=== PATIENT | male | born 1945 | race Caucasian/White ===

== ENCOUNTER 2017-09-25 08:48 | Outpatient (RCR) | payer MEDICARE, OTHER ==
[2017-09-18 09:20] VITALS: BP 138/89
[2017-09-18 09:39] LABS: PLATELET COUNT, AUTOMATED 205 K/uL (150-450)
[~2017-09-25] VITALS: Ht 180.3 cm; Wt 94.8 kg
[~2017-09-25 08:48] MED LIST: AMOX-559 PO; ASCO100T15 PO; ATR80PT PO; CHOL400C10 PO; DOXE10CA25 PO; MULT1CAP59 PO; OMEP-125 PO; PRED-1 PO; TAMS0.4C70 PO; VITA-198 PO
[2017-09-25 09:04] VITALS: BP 145/78
--- NOTE | 2017-09-26 18:20 | ONCOLOGY FOLLOW UP NOTE ---
EVENT DATE: August 25, 2017 CHIEF COMPLAINT/REASON FOR VISIT Mr. Akins is a pleasant 72-year-old gentleman with CLL HARMON stage 0, here for followup. HISTORY OF PRESENT ILLNESS Bryant returns. He has a diagnosis of CLL with no high risk features. 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 In CLL, trisomy 12 is an indeterminate prognostic factor, but deletion 13q is a very favorable prognostic factor. It is not surprising that his labs are unchanged. 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 Fortunately no issues with infection. He does not believe he has been sick this winter. He has lost approximately 50 pounds intentionally with diet and exercise changes over the lateral year, which is outstanding. No other new concerns today. PAST MEDICAL HISTORY 1. Hyperlipidemia. 2. Hypertension. 3. Type 2 diabetes. 4. CLL. FAMILY HISTORY Remarkable for a seizure disorder, lung cancer in a brother, father with coronary artery disease, a paternal grandmother with stomach cancer, and a paternal grandmother with a brain tumor. 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 He has presented with his in the past. Never smoker. REVIEW OF SYSTEMS: CONSTITUTIONAL: No fevers, chills. He now has a 50 pound intentional weight loss, which is excellent. HEENT: No headache or vision changes. CARDIOVASCULAR: No chest pain, dyspnea on exertion or edema. RESPIRATORY: No shortness of breath, wheeze, cough. GASTROINTESTINAL: No nausea, vomiting. MUSCULOSKELETAL: The patient does note some inflammation along the right border of his sternum, consistent with some mild costochondritis. He thinks this may have been there before, but is more noticeable now that he has lost weight. ENDOCRINE: No heat or cold intolerance. PSYCHIATRIC: No anxiety or depression. LYMPHATIC: No concerning lymph nodes. The remainder of the 14-point review of systems is otherwise negative. PHYSICAL EXAMINATION VITAL SIGNS: Blood pressure 145/78, pulse 57, respiratory rate 16, temperature 97.1 Fahrenheit, oxygen saturation 96% on room air. Weight 94.8 kg, pain 0/10, fatigue 0/10. GENERAL: In stable condition, resting comfortably in the chair. HEENT: Normocephalic, atraumatic. LYMPHATIC: No appreciable cervical, supraclavicular or axillary adenopathy. ABDOMEN: Soft. No organomegaly or masses appreciated. EXTREMITIES: No clubbing, cyanosis or edema. The remainder of the physical exam is unremarkable. IMPRESSION AND PLAN Bryant is a very pleasant 72-year-old gentleman with the followin. Chronic lymphocytic leukemia with favorable genetics with a 13q deletion. No indication for treatment at this time. No anemia, thrombocytopenia or other concerns. His IgG remains above 400. No need for IVIG at this point. 2. Benign renal lesions. He had an MRI in 2017, and no need to follow these any longer. I answered all of his questions today. Billing: Return visit level 3. Total time 20 minutes, counseling time 15. MTDD
== END 2017-10-11 09:01 | disposition home or self-care (01) ==
LOC: ONC 08:48
PROVIDERS: ATTEND Internal Medicine
DX: C91.00 Acute lymphoblastic leukemia not having achieved remission (principal); N28.89 Other specified disorders of kidney and ureter; E11.9 Type 2 diabetes mellitus without complications
CPT/HCPCS: 36415; 82784; 85025; G0463; 82040; 82247; 82310; 82374; 82435; 82565; 82947; 84075; 84132; 84155; 84295; 84450; 84460; 84520; 99212

== ENCOUNTER 2017-12-12 09:14 | Outpatient (RCR) | payer MEDICARE, OTHER ==
--- NOTE | 2017-12-13 11:10 | RADIOLOGY IMAGING REPORT ---
FACILITY: [facility] PATIENT NAME: Bryant Akins : 1945 MR: [id number] V: [id number] EXAM DATE: ORDERING PHYSICIAN: UMBERTO COLORADO TECHNOLOGIST: Location: [facility] Patient: Bryant Akins : 1945 Visit/Account:[id number] Date of Sevice: 12/13/2017 ABDOMEN PELVIS ESWL CYSTO W/O HISTORY: History of kidney stones TECHNIQUE: Axial images acquired through the abdomen/pelvis. Coronal and sagittal reformatting also performed. No IV contrast administered. Dose Lowering Technique One of the following dose optimization techniques was utilized in the performance of this exam: Autom ated exposure control; adjustment of the mA and/or kV according to the patient's size; or use of an i terative reconstruction technique. Specific details can be referenced in the facility's radiology C T exam operational policy. COMPARISON: CT chest abdomen and pelvis January 05, 2017 FINDINGS: Visualized lung bases: Negative. Hepatobiliary: The liver is incompletely imaged although the visualized portion appears unremarkable Spleen: Spleen is incompletely imaged although the visualized portion appears unremarkable Adrenals: Negative. Pancreas: Negative. Kidneys ureters and bladder: 2.9 cm upper pole right renal cyst appears unchanged. 8 mm cyst upper p ole the left kidney slightly increased now measuring 1 cm.. The 1.8 cm hyperattenuating mass anterol ateral left mid kidney appears unchanged in size. This was shown by previous MR to represent a prote inaceous or hemorrhagic cyst. Cortical scarring lower pole of the left kidney again seen within the adjacent 6 mm nonobstructing calcification. Is an additional tiny punctate calcification in the infe rior most aspect lower pole the left kidney. There is no evidence of hydronephrosis or hydroureter. There is moderate bladder wall thickening. There are now bladder diverticula present. Genitalia: Negative. GI: The colon appears very redundant. There is a moderate amount of fecal material throughout colon which can be seen with constipation. Hyperdense material is seen in the stomach which may be relat ed to medication Vessels/spaces/nodes: Mild to moderate vascular calcifications again noted.. There is been developm ent of mild retroperitoneal adenopathy. A collections representative left periaortic lymph node measures 1.2 x 0 .9 x 1.4 cm. Bones/soft tissues: There are extensive spondylotic changes of the lumbar spine and mild generative changes hip joints Additional findings: None pertinent. IMPRESSION: Bilateral renal cysts The previously noted 1.8 cm hyperattenuating mass along the anterolateral aspect left kidney appears unchanged in size and was shown by previous MR to represent a proteinaceous or hemorrhagic cyst. Cortical scarring of the lower pole the left kidney with adjacent calcification appears stable other than a slight increase in size of the calcination now measuring 60 m as opposed to 4.6 mm previously There is moderate bladder wall thickening with bladder diverticula now evident. Very redundant colon with a moderate amount of fecal material throughout colon which can be seen with constipation Interval development of mild retroperitoneal adenopathy. This could be reactive although short-term interval follow-up recommended Report Dictated By: Valerie Parker MD at 12/13/2017 10:10 AM Report E-Signed By: Valerie Parker MD at 12/13/2017 11:03 AM ZAHIRAN:AMICIVN
== END 2017-12-13 18:00 | disposition home or self-care (01) ==
LOC: CT 09:14
PROVIDERS: ATTEND Urology
DX: Z12.5 Encounter for screening for malignant neoplasm of prostate (principal); N28.1 Cyst of kidney, acquired; N32.3 Diverticulum of bladder
CPT/HCPCS: 36415; 74176; G0103; 84153

== ENCOUNTER 2017-12-19 05:28 | Emergency (ER) | payer MEDICARE, OTHER ==
[2017-12-19] MEDS ORDERED: NS(*) 0.9% 1000 ML BAG 1,000 ML IV ONE (05:45)
[2017-12-19] MEDS ORDERED: ONDANSETRON 4 MG/2 ML VIAL IVP ONE (05:45)
--- NOTE | 2017-12-19 05:45 | ER Report ---
History and Physical Time Seen By MD: 05:33 (REJI DEE DO) HPI/ROS CHIEF COMPLAINT: Constipation HISTORY OF PRESENT ILLNESS: 72-year-old male presents ambulatory to the ER complaining of no bowel movement for 4 days. He's been loading upon fiber and drinking a ton of water. He took a laxative last night and milk of magnesia without effect elation of his bowels. He attempted to digitally disimpact himself. He causes himself to have some rectal bleeding. Patient denies history of previous abdominal surgery. Patient states he had screening colonoscopy approximately 15 years ago. There were no lesions noted. At that time. REVIEW OF SYSTEMS: Respiratory: No cough, no dyspnea. Cardiovascular: No chest pain, no palpitations. Gastrointestinal: As above Musculoskeletal: No back pain. (REJI DEE DO) Allergies: Coded Allergies: No Known Drug Allergies (Unverified , 12/19/17) Home Meds Active Scripts Docusate Sodium (COLACE) 100 Mg Capsule, 100 MG PO QDAY, #30 CAPSULE 0 Refills Prov:TUNG SPANGLER MD 12/19/17 Reported Medications Cholecalciferol (Vitamin D3) (VITAMIN D) 400 Unit Capsule, 400 UNIT PO DAILY, CAPSULE 09/18/17 Ascorbic Acid (VITAMIN C) 100 Mg Tablet, 2000 MG PO DAILY 09/18/17 Multivitamin (MULTIVITAMINS) 1 Each Capsule, 1 EACH PO DAILY, CAPSULE 09/18/17 Atorvastatin (LIPITOR) 80 Mg Tab, 0.5 TAB PO QPM, TAB 12/24/16 Tamsulosin Hcl (TAMSULOSIN HCL) 0.4 Mg Cap.er.24h, 0.4 MG PO BID, CAP 12/24/16 Omeprazole (OMEPRAZOLE) 20 Mg Capsule.dr, 2 CAP PO QDAY, CAP 12/24/16 Discontinued Reported Medications Vitamin E Acetate (VITAMIN E) 1,000 Unit Capsule, 1000 UNIT PO DAILY, CAPSULE 09/18/17 Past Medical/Surgical History PAST MEDICAL HISTORY 1. Hyperlipidemia. 2. Hypertension. 3. Type 2 diabetes. 4. CLL. (REJI DEE DO) Reviewed Nurses Notes: Yes Old Medical Records Reviewed: Yes (REJI DEE DO) Constitutional Vital Sign - Last 24 Hours 12/19/17 05:34 Temp 98.4 Pulse 69 Resp 16 B/P (MAP) 127/64 Pulse Ox 94 O2 Delivery Room Air (TUNG SPANGLER MD) Physical Exam General Appearance: The patient is alert, has no immediate need for airway protection and no current signs of toxicity. Vital signs stable, skin warm, dry , pink Eyes: Pupils equal and round no injection. Respiratory: Chest is non tender, lungs are clear to auscultation. Cardiac: regular rate and rhythm Gastrointestinal: Abdomen is soft, mild distention,, no masses, bowel sounds normal. Musculoskeletal: Neck: Neck is supple and non tender. Extremities have full range of motion and are non tender. Skin: No rashes or lesions. DIFFERENTIAL DIAGNOSIS: After history and physical exam differential diagnosis was considered for abdominal pain including but not limited to appendicitis, cholecystitis, gastritis, bowel obstruction, constipation and urinary tract infection. (REJI DEE DO) Medical Decision Making Data Points Result Diagram: 12/19/17 0556 12/19/17 0556 Laboratory Hematology Test 12/19/17 05:56 12/19/17 07:55 Red Blood Count 4.14 M/uL (4.00-5.60) Mean Corpuscular Volume 94.2 fL (80.0-96.0) Mean Corpuscular Hemoglobin 33.5 pg (26.0-33.0) Mean Corpuscular Hemoglobin Concent 35.6 g/dL (32.0-36.0) Red Cell Distribution Width 14.1 % (11.5-14.5) Mean Platelet Volume 9.1 fL (7.2-11.1) Neutrophils (%) (Auto) 36.7 % (39.4-72.5) Lymphocytes (%) (Auto) 54.2 % (17.6-49.6) Monocytes (%) (Auto) 6.1 % (4.1-12.4) Eosinophils (%) (Auto) 2.3 % (0.4-6.7) Basophils (%) (Auto) 0.7 % (0.3-1.4) Nucleated RBC Relative Count (auto) 0.1 /100WBC Neutrophils # (Auto) 4.1 K/uL (2.0-7.4) Lymphocytes # (Auto) 6.1 K/uL (1.3-3.6) Monocytes # (Auto) 0.7 K/uL (0.3-1.0) Eosinophils # (Auto) 0.3 K/uL (0.0-0.5) Basophils # (Auto) 0.1 K/uL (0.0-0.1) Nucleated RBC Absolute Count (auto) 0.01 K/uL Prothrombin Time 13.2 seconds (12.0-14.4) Prothromb Time International Ratio 1.00 Activated Partial Thromboplast Time 28 seconds (23-35) Sodium Level 137 mmol/L (137-145) Potassium Level 3.8 mmol/L (3.5-5.0) Chloride Level 100 mmol/L (98-107) Carbon Dioxide Level 25 mmol/L (22-30) Blood Urea Nitrogen 13 mg/dl (9-21) Creatinine 0.70 mg/dl (0.66-1.25) Glomerular Filtration Rate Calc > 60.0 Random Glucose 105 mg/dl (75-110) Calcium Level 8.6 mg/dl (8.4-10.2) Total Bilirubin 0.4 mg/dl (0.2-1.3) Aspartate Amino Transf (AST/SGOT) 30 U/L (0-35) Alanine Aminotransferase (ALT/SGPT) 38 U/L (0-56) Alkaline Phosphatase 49 U/L (0-126) Total Protein 6.1 gm/dl (6.3-8.2) Albumin 3.7 g/dl (3.5-5.0) Amylase Level 70 U/L (0-110) Lipase 134 U/L (23-300) Urine Color Yellow Urine Clarity Slightly-cloudy Urine pH 8.0 pH (4.8-9.5) Urine Specific Golden 1.021 Urine Protein Negative mg/dL (NEGATIVE) Urine Glucose (UA) Negative mg/dL (NEGATIVE) Urine Ketones Negative mg/dL (NEGATIVE) Urine Blood Negative (NEGATIVE) Urine Nitrite Negative (NEGATIVE) Urine Bilirubin Negative (NEGATIVE) Urine Urobilinogen Negative mg/dL (0.2-1.9) Urine Leukocyte Esterase Negative (NEGATIVE) Urine RBC None /HPF (0-2/HPF) Urine WBC 1 /HPF (0-5/HPF) Urine Squamous Epithelial Cells None /LPF (</=FEW) Urine Bacteria Negative /HPF (NONE-FEW) Urine Mucus None /HPF (NONE-FEW) Chemistry Test 12/19/17 05:56 12/19/17 07:55 White Blood Count 11.3 k/uL (4.5-11.0) Red Blood Count 4.14 M/uL (4.00-5.60) Hemoglobin 13.9 g/dL (14.0-18.0) Hematocrit 39.0 % (42.0-52.0) Mean Corpuscular Volume 94.2 fL (80.0-96.0) Mean Corpuscular Hemoglobin 33.5 pg (26.0-33.0) Mean Corpuscular Hemoglobin Concent 35.6 g/dL (32.0-36.0) Red Cell Distribution Width 14.1 % (11.5-14.5) Platelet Count 212 K/uL (150-450) Mean Platelet Volume 9.1 fL (7.2-11.1) Neutrophils (%) (Auto) 36.7 % (39.4-72.5) Lymphocytes (%) (Auto) 54.2 % (17.6-49.6) Monocytes (%) (Auto) 6.1 % (4.1-12.4) Eosinophils (%) (Auto) 2.3 % (0.4-6.7) Basophils (%) (Auto) 0.7 % (0.3-1.4) Nucleated RBC Relative Count (auto) 0.1 /100WBC Neutrophils # (Auto) 4.1 K/uL (2.0-7.4) Lymphocytes # (Auto) 6.1 K/uL (1.3-3.6) Monocytes # (Auto) 0.7 K/uL (0.3-1.0) Eosinophils # (Auto) 0.3 K/uL (0.0-0.5) Basophils # (Auto) 0.1 K/uL (0.0-0.1) Nucleated RBC Absolute Count (auto) 0.01 K/uL Prothrombin Time 13.2 seconds (12.0-14.4) Prothromb Time International Ratio 1.00 Activated Partial Thromboplast Time 28 seconds (23-35) Glomerular Filtration Rate Calc > 60.0 Calcium Level 8.6 mg/dl (8.4-10.2) Total Bilirubin 0.4 mg/dl (0.2-1.3) Aspartate Amino Transf (AST/SGOT) 30 U/L (0-35) Alanine Aminotransferase (ALT/SGPT) 38 U/L (0-56) Alkaline Phosphatase 49 U/L (0-126) Total Protein 6.1 gm/dl (6.3-8.2) Albumin 3.7 g/dl (3.5-5.0) Amylase Level 70 U/L (0-110) Lipase 134 U/L (23-300) Urine Color Yellow Urine Clarity Slightly-cloudy Urine pH 8.0 pH (4.8-9.5) Urine Specific Golden 1.021 Urine Protein Negative mg/dL (NEGATIVE) Urine Glucose (UA) Negative mg/dL (NEGATIVE) Urine Ketones Negative mg/dL (NEGATIVE) Urine Blood Negative (NEGATIVE) Urine Nitrite Negative (NEGATIVE) Urine Bilirubin Negative (NEGATIVE) Urine Urobilinogen Negative mg/dL (0.2-1.9) Urine Leukocyte Esterase Negative (NEGATIVE) Urine RBC None /HPF (0-2/HPF) Urine WBC 1 /HPF (0-5/HPF) Urine Squamous Epithelial Cells None /LPF (</=FEW) Urine Bacteria Negative /HPF (NONE-FEW) Urine Mucus None /HPF (NONE-FEW) Coagulation Test 12/19/17 05:56 Prothrombin Time 13.2 seconds Prothromb Time International Ratio 1.00 Activated Partial Thromboplast Time 28 seconds Urinalysis Test 12/19/17 07:55 Urine Color Yellow Urine Clarity Slightly-cloudy Urine pH 8.0 pH (4.8-9.5) Urine Specific Golden 1.021 Urine Protein Negative mg/dL (NEGATIVE) Urine Glucose (UA) Negative mg/dL (NEGATIVE) Urine Ketones Negative mg/dL (NEGATIVE) Urine Blood Negative (NEGATIVE) Urine Nitrite Negative (NEGATIVE) Urine Bilirubin Negative (NEGATIVE) Urine Urobilinogen Negative mg/dL (0.2-1.9) Urine Leukocyte Esterase Negative (NEGATIVE) Urine RBC None /HPF (0-2/HPF) Urine WBC 1 /HPF (0-5/HPF) Urine Squamous Epithelial Cells None /LPF (</=FEW) Urine Bacteria Negative /HPF (NONE-FEW) Urine Mucus None /HPF (NONE-FEW) (TUNG SPANGLER MD) EKG/Imaging Imaging X-ray: Three-view abdominal series was obtained. I viewed the images myself on the PACS system. My interpretation of the images is: []. [The radiologist interpretation had no clinically significant variation from this interpretation] . (ABBIREJI Ponce DO) Imaging PATIENT NAME: Bryant Akins : 1945 MR: [id number] V: [id number] EXAM DATE: ORDERING PHYSICIAN: REJI DEE TECHNOLOGIST: Location: [facility] [place] Patient: Bryant Akins : 1945 Visit/Account:[id number] Date of Sevice: 12/19/2017 Computed tomograpy abdomen and pelvis with IV contrast Indication: Abdominal pain. Evaluate for bowel obstruction. Comparison: 12/13/2017. Technique: Transaxial computed tomography images were obtained through the abdomen and pelvis following the injection of nonionic iodinated intravenous contrast. Reformatted coronal and sagittal images were also obtained. One of the following dose optimization techniques was utilized in the performance of this exam: Automated exposure control; adjustment of the mA and/ or kV according to the patient's size; or use of an iterative reconstruction technique. Specific details can be referenced in the facility's radiology CT exam operational policy. Contrast: 70 ml of Isovue-370 IV contrast. Findings: Lower lung uribe: Minimal dependent atelectasis. Liver: There is mild hepatomegaly. No focal parenchymal abnormality. Biliary: The gallbladder is partly contracted. No intrahepatic or extrahepatic biliary dilatation. Pancreas: Normal appearance. Spleen: Tiny low-attenuation lesion seen centrally within the spleen. This is indeterminant. This was seen on a prior study in December 2016 and is stable. Adrenal glands: Unremarkable. Kidneys / retroperitoneum: No hydronephrosis. There are bilateral renal cysts. There is an area of cortical thinning involving the lower pole left kidney with an associated renal calculus. A mildly hyperdense renal lesion on the left has been demonstrated to be a proteinaceous cyst on prior MRI. Bowel / peritoneum / mesenteries: There is a large volume of fecal material seen throughout the entire colon and rectum. This has increased in volume particularly in the rectum since the prior study and is compatible with constipation. No evidence for bowel obstruction. No free air or free pelvic fluid. Lymph node assessment: No pathologic adenopathy identified. Pelvic structures: Prostate gland is mildly enlarged and impresses upon the base of the bladder. Bladder does appear mildly distended. Vessels: Diffuse atherosclerotic calcifications seen throughout a nonaneurysmal abdominal aorta and branches. Musculoskeletal / Body wall: Multilevel degenerative changes involve the lumbar spine. There is facet osteoarthritis at multiple levels. No acute fracture deformity. There is hip joint osteoarthritis. IMPRESSION: 1. Large volume of fecal material throughout the colon and rectum. This is increased in volume since the recent prior study compatible with worsening constipation. No evidence to suggest small bowel obstruction. 2. Mild hepatomegaly. 3. Combination of simple and hemorrhagic/proteinaceous renal cysts without significant change. 4. Nonobstructing left lower pole renal stone. 5. Urinary distention of the bladder. Correlate clinically. Report Dictated By: Alec Perez at 12/19/2017 6:56 AM Report E-Signed By: Alec Perez at 12/19/2017 7:08 AM WSN:[id number] (TUNG SPANGLER MD) ED Course/Re-evaluation Clinical Indication for ER IV: Hydration, IV Access ED Course Patient was admitted to an examination room. H&P was done. The differential diagnoses was considered. On clinical examination. Patient has a grossly distended abdomen. He's not had a bowel movement for 4 days. He's been taking significant amounts of fiber trying to stimulate a bowel movement without success. Patient states he feels like there is a mass in his rectum. He does admit that he has been passing some gas. Three-way of the abdomen shows grossly distended redundant colon with significant fecal stasis. We'll proceed to CT scan to rule out volvulus or bowel obstruction. Care turned over to Dr. Spangler at shift change (REJI DEE DO) ED Course 12/19/2017 8:22:48 am patient had large bowel movement after soapsuds enema and is feeling better. Plan at this time will discharge patient home placed on Colace Decision to Disposition Date: December 19, 2017 Decision to Disposition Time: 08:23 Turned Over Assumed care of patient from dr Dee at 0700 (TUNG SPANGLER MD) Depart Departure Latest Vital Signs Vital Signs Date Time Temp Pulse Resp B/P (MAP) Pulse Ox O2 Delivery O2 Flow Rate FiO2 12/19/17 05:34 98.4 69 16 127/64 94 Room Air (TUNG SPANGLER MD) Impression: Primary Impression: Constipation Condition: Improved Disposition: HOME OR SELF-CARE Referrals: EZEQUIEL QUEZADA PA-C (PCP) 1 Week if symptoms persist New Scripts Docusate Sodium (COLACE) 100 Mg Capsule 100 MG PO QDAY, #30 CAPSULE 0 Refills Prov: TNUG SPANGLER MD 12/19/17 Patient Instructions: Constipation (ED) Problem Qualifiers Primary Impression: Constipation Constipation type: unspecified constipation type Qualified Codes: K59.00 - Constipation, unspecified REJI DEE DO December 19, 2017 05:45 TUNG SPANGLER MD December 19, 2017 07:16
[2017-12-19 06:12] LABS: PLATELET COUNT, AUTOMATED 212 K/uL (150-450)
[2017-12-19] MEDS ORDERED: IOPAMIDOL 76% 75 ML INFUS BTL 75 ML ONE (06:34)
--- NOTE | 2017-12-19 06:38 | RADIOLOGY IMAGING REPORT ---
FACILITY: [facility] PATIENT NAME: Bryant Akins : 1945 MR: [id number] V: [id number] EXAM DATE: ORDERING PHYSICIAN: REJI OG TECHNOLOGIST: Location: [facility] [place] Patient: Bryant Akins : 1945 Visit/Account:[id number] Date of Sevice: 12/19/2017 Examination: PA chest with abdomen obstructive series HISTORY: Constipation. Discomfort. FINDINGS: There is a small calcified nodule in the left mid lung characteristic of old granulomatous disease. L ungs otherwise clear and well aerated. No effusion or pneumothorax. Heart size and mediastinal contou rs are normal. Supine and upright views of the abdomen demonstrate a large volume of stool throughout the colon and rectum consistent with constipation. No focally dilated bowel loops. No free air or air-fluid levels. Degenerative disc disease involves the lumbar spine at multiple levels. IMPRESSION: 1. No radiographic evidence of active disease in the chest. 2. Large volume of stool consistent with constipation. Report Dictated By: Alec Perez at 12/19/2017 6:31 AM Report E-Signed By: Alec Perez at 12/19/2017 6:33 AM [id number]
--- NOTE | 2017-12-19 07:11 | RADIOLOGY IMAGING REPORT ---
FACILITY: [facility] PATIENT NAME: Bryant Akins : 1945 MR: [id number] V: [id number] EXAM DATE: ORDERING PHYSICIAN: REJI GO TECHNOLOGIST: [place] [facility] [place] Patient: Bryant Akins : 1945 Visit/Account:[id number] Date of Sevice: 12/19/2017 Computed tomograpy abdomen and pelvis with IV contrast Indication: Abdominal pain. Evaluate for bowel obstruction. Comparison: 12/13/2017. Technique: Transaxial computed tomography images were obtained through the abdomen and pelvis follo wing the injection of nonionic iodinated intravenous contrast. Reformatted coronal and sagittal image s were also obtained. One of the following dose optimization techniques was utilized in the performance of this exam: Autom ated exposure control; adjustment of the mA and/or kV according to the patient's size; or use of an i terative reconstruction technique. Specific details can be referenced in the facility's radiology C T exam operational policy. Contrast: 70 ml of Isovue-370 IV contrast. Findings: Lower lung uribe: Minimal dependent atelectasis. Liver: There is mild hepatomegaly. No focal parenchymal abnormality. Biliary: The gallbladder is partly contracted. No intrahepatic or extrahepatic biliary dilatation. Pancreas: Normal appearance. Spleen: Tiny low-attenuation lesion seen centrally within the spleen. This is indeterminant. This was seen on a prior study in December 2016 and is stable. Adrenal glands: Unremarkable. Kidneys / retroperitoneum: No hydronephrosis. There are bilateral renal cysts. There is an area of co rtical thinning involving the lower pole left kidney with an associated renal calculus. A mildly hype rdense renal lesion on the left has been demonstrated to be a proteinaceous cyst on prior MRI. Bowel / peritoneum / mesenteries: There is a large volume of fecal material seen throughout the entir e colon and rectum. This has increased in volume particularly in the rectum since the prior study and is compatible with constipation. No evidence for bowel obstruction. No free air or free pelvic fluid . Lymph node assessment: No pathologic adenopathy identified. Pelvic structures: Prostate gland is mildly enlarged and impresses upon the base of the bladder. B ladder does appear mildly distended. Vessels: Diffuse atherosclerotic calcifications seen throughout a nonaneurysmal abdominal aorta and b ranches. Musculoskeletal / Body wall: Multilevel degenerative changes involve the lumbar spine. There is facet osteoarthritis at multiple levels. No acute fracture deformity. There is hip joint osteoarthritis. IMPRESSION: 1. Large volume of fecal material throughout the colon and rectum. This is increased in volume since the recent prior study compatible with worsening constipation. No evidence to suggest small bowel obs truction. 2. Mild hepatomegaly. 3. Combination of simple and hemorrhagic/proteinaceous renal cysts without significant change. 4. Nonobstructing left lower pole renal stone. 5. Urinary distention of the bladder. Correlate clinically. Report Dictated By: Alec Perez at 12/19/2017 6:56 AM Report E-Signed By: Alec Perez at 12/19/2017 7:08 AM WSN:[id number]
[2017-12-19 07:15] VITALS: BP 117/70
[2017-12-19] MEDS ORDERED: DOCU-416 PO (08:24)
== END 2017-12-19 08:30 | disposition home or self-care (01) ==
LOC: ER 05:36
DX: K59.00 Constipation, unspecified (principal); E11.9 Type 2 diabetes mellitus without complications; I10 Essential (primary) hypertension; E78.5 Hyperlipidemia, unspecified
CPT/HCPCS: 74022; 74177; 81001; 82150; 83690; 85025; 85610; 85730; 96361; 96374; 99284; J2405; J7030; Q9967; 82040; 82247; 82310; 82374; 82435; 82565; 82947; 84075; 84132; 84155; 84295; 84450; 84460; 84520

== ENCOUNTER 2017-12-22 00:50 | Day surgery (SDC) | payer MEDICARE, OTHER ==
[~2017-12-22] VITALS: Ht 180.3 cm; Wt 88.9 kg
[~2017-12-22 00:50] MED LIST changes: +DOCU-416 PO
[2017-12-22] MEDS ORDERED: OPHTHALMIC PROCEDURE 2 OU PRN ×2 (06:00)
[2017-12-22] MEDS ORDERED: OPHTHALMIC PROCEDURE 1 OU PRN (06:00)
[2017-12-22] MEDS ORDERED: acetaZOLAMIDE 500 MG CAPCR PO ONE (06:00)
[2017-12-22 12:46] VITALS: BP 137/84
[2017-12-22] MEDS ORDERED: LIDOCAINE/SOD BICARB 8.4% SYR ID ONE (13:00)
[2017-12-22] MEDS ORDERED: NORMOSOL R SOLN(*) 1000 ML BAG 1,000 ML IV PRN (13:00)
[2017-12-22 14:31] VITALS: BP 130/75
--- NOTE | 2017-12-24 13:18 | FOSTER LEFT EYE CATARACT ---
EVENT DATE: December 22, 2017 SURGEON: Bryant Bernard MD ANESTHESIA: Topical. PREOPERATIVE DIAGNOSIS Cataract, left eye. POSTOPERATIVE DIAGNOSIS Cataract, left eye. PROCEDURE Phacoemulsification of cataractous lens with implantation of an intraocular lens , left eye. DESCRIPTION OF PROCEDURE The risks and benefits and alternatives were carefully discussed with the patient, and preoperative consent was obtained. The patient was brought to the operating room after receiving topical anesthetic. The patient was prepped and draped using sterile technique in the usual manner. A stab incision was made, and the chamber was inflated with preservative-free lidocaine. DuoVisc was injected to inflate the chamber. A 2.2 mm blade was used to enter the anterior chamber. Utrata forceps were used to tear a circular capsulorrhexis. BSS was used to hydrodissect the nucleus. Phaco tip was introduced, and the nucleus was chopped into four quadrants. Each quadrant was removed. The I/A tip was used to remove the cortex. The bag was inflated with ProVisc. The intraocular lens was injected into the capsular bag. The I/A tip was used to remove the ProVisc. The wound was found to be watertight. Vigamox, Nevanac, and Maxitrol ointment were placed in the patient's eye. The patient's eye was patched, and the patient was taken to the recovery room in stable condition. The patient was examined in the recovery room and found to be stable prior to release from the hospital. BLAINE
== END 2017-12-22 14:48 | disposition home or self-care (01) ==
LOC: OR 00:50
PROVIDERS: ATTEND Ophthalmology
DX: H25.12 Age-related nuclear cataract, left eye (principal); H25.11 Age-related nuclear cataract, right eye
CPT/HCPCS: 66984; A9270; V2632

== ENCOUNTER 2018-02-16 03:21 | Day surgery (SDC) | payer MEDICARE, OTHER ==
[~2018-02-16] VITALS: Ht 177.8 cm; Wt 87.1 kg
[2018-02-16 11:32] VITALS: BP 128/80
[2018-02-16] MEDS ORDERED: LIDOCAINE/SOD BICARB 8.4% SYR ID ONE (12:00)
[2018-02-16] MEDS ORDERED: acetaZOLAMIDE 500 MG CAPCR PO ONE (12:00)
[2018-02-16] MEDS ORDERED: NORMOSOL R SOLN(*) 1000 ML BAG 1,000 ML IV PRN (12:00)
[2018-02-16] MEDS ORDERED: OPHTHALMIC PROCEDURE 1 OD PRN (12:00)
[2018-02-16] MEDS ORDERED: OPHTHALMIC PROCEDURE 2 OD PRN ×2 (12:00)
[2018-02-16 13:33] VITALS: BP 129/76
--- NOTE | 2018-02-16 17:13 | FOSTER RIGHT EYE CATARACT ---
EVENT DATE: February 16, 2018 SURGEON: Bryant Bernard MD ANESTHESIOLOGIST: None ANESTHESIA: Topical PREOPERATIVE DIAGNOSIS Cataract, right eye. POSTOPERATIVE DIAGNOSIS Cataract, right eye. PROCEDURE Phacoemulsification of cataractous lens with implantation of an intraocular lens , right eye. DESCRIPTION OF PROCEDURE The risks and benefits and alternatives were carefully discussed with the patient, and preoperative consent was obtained. The patient was brought to the operating room. After receiving topical anesthetic, the patient was prepped and draped using sterile technique in the usual manner. A stab incision was made, and the chamber was inflated with preservative-free lidocaine. DuoVisc was injected to inflate the chamber. A 2.2 mm blade was used to enter the anterior chamber. Utrata forceps were used to tear a circular capsulorrhexis. BSS was used to hydrodissect the nucleus. Phaco tip was introduced, and the nucleus was chopped into four quadrants. Each quadrant was removed. The I/A tip was used to remove the cortex. The bag was inflated with ProVisc. The intraocular lens was injected into the capsular bag. The I/A tip was used to remove the ProVisc. The wound was found to be watertight. Vigamox, Nevanac, and Maxitrol ointment were placed in the patient's eye. The patient's eye was patched, and the patient was taken to the recovery room in stable condition. The patient was examined in the recovery room and found to be stable prior to release from the hospital. BLAINE
== END 2018-02-16 13:40 | disposition home or self-care (01) ==
LOC: OR 03:21
PROVIDERS: ATTEND Ophthalmology
DX: H25.11 Age-related nuclear cataract, right eye (principal)
CPT/HCPCS: 66984; A9270; V2632

== ENCOUNTER → 2018-06-14 | Outpatient (CLI) | payer MEDICARE, OTHER | LOC: LAB 14:22 | PROVIDERS: ATTEND Urology | DX: N40.1 Benign prostatic hyperplasia with lower urinary tract symptoms (principal); C91.90 Lymphoid leukemia, unspecified not having achieved remission | CPT/HCPCS: 36415; 84153 ==

== ENCOUNTER 2018-06-18 09:46 | Outpatient (RCR) | payer MEDICARE, OTHER ==
[2018-03-28 08:47] LABS: PLATELET COUNT, AUTOMATED 283 K/uL (150-450)
[2018-04-02 09:57] VITALS: BP 135/74
--- NOTE | 2018-04-03 14:39 | ONCOLOGY FOLLOW UP NOTE ---
EVENT DATE: April 02, 2018 CHIEF COMPLAINT/REASON FOR VISIT Mr. Akins is a very pleasant, 72-year-old gentleman with CLL, Negrete stage zero, here for followup. 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 Deletion 13q is a very favorable prognostic factor. HISTORY OF PRESENT ILLNESS Bryant returns. He is doing quite well. He recently had cataract surgery, and his vision is slightly improved in terms of long distance. He still requires glasses for reading. 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 He has had some more frequent mild viral syndromes, but nothing major. He has not required any hospitalizations. I do not believe he is quite ready for consideration of supportive IVIG, and he would not like to start it either. He has lost approximately 50 pounds with diet and exercise changes in the last year, which is excellent. No concerning lumps or bumps. No other new symptoms today. PAST MEDICAL HISTORY 1. Hyperlipidemia. 2. Hypertension. 3. Type 2 diabetes. 4. CLL. FAMILY HISTORY Remarkable for a seizure disorder, lung cancer in a brother, father with coronary artery disease, a paternal grandmother with stomach cancer, and a paternal grandmother with a brain tumor. 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 He has presented with his in the past. Never smoker. REVIEW OF SYSTEMS: CONSTITUTIONAL: No fevers, chills. HEENT: No headache or vision changes. CARDIOVASCULAR: No chest pain or dyspnea on exertion or edema. RESPIRATORY: No shortness of breath, wheeze, or cough. GASTROINTESTINAL: No nausea or vomiting. GENITOURINARY: No dysuria or hematuria. MUSCULOSKELETAL: No aches or joint pain. PSYCHIATRIC: No anxiety or depression. ENDOCRINE: No heat or cold intolerance. LYMPHATIC: No concerning lumps or bumps. SKIN: No concerning bruises or lesions. Remainder of 14-point review of systems otherwise negative. PHYSICAL EXAMINATION VITAL SIGNS: Blood pressure 135/74, pulse 50, respiratory rate 16, temperature 96.6 Fahrenheit, oxygen saturation 98% on room air. Weight 90.8 kg which is improved from last year, and he continues to lose weight intentionally. Pain zero/10. Fatigue zero/10. GENERAL: In stable condition, resting comfortably in the chair. LYMPHATIC: No appreciable cervical, supraclavicular, or axillary adenopathy. CARDIOVASCULAR: Regular rate and rhythm. LUNGS: Clear. ABDOMEN: Soft, nontender. EXTREMITIES: No clubbing, cyanosis, or edema. Remainder of the physical exam unremarkable. IMPRESSION AND PLAN Bryant is a very pleasant, 72-year-old gentleman with the followin. Chronic lymphocytic leukemia with favorable genetics including 13q deletion. No evidence of changes to require treatment. No need for intravenous immunoglobulin, although he is getting colds more frequently. We will reconsider this in the future if needed. 2. Benign renal lesions with multiple imaging including an MRI in 2017. We no longer need to follow these. I answered all of his questions today. BILLING Return visit level 4. Total time 30 minutes, counseling time 20. MTDD
[2018-06-18 09:51] VITALS: BP 148/68
[2018-06-18 10:05] LABS: PLATELET COUNT, AUTOMATED 219 K/uL (150-450)
== END 2018-06-25 ==
LOC: SPU 09:46
PROVIDERS: ATTEND Internal Medicine
DX: C91.00 Acute lymphoblastic leukemia not having achieved remission (principal); N28.89 Other specified disorders of kidney and ureter; E11.9 Type 2 diabetes mellitus without complications; I10 Essential (primary) hypertension; E78.5 Hyperlipidemia, unspecified
CPT/HCPCS: 36415; 82784; 85025; G0463; 82040; 82247; 82310; 82374; 82435; 82565; 82947; 84075; 84132; 84155; 84295; 84450; 84460; 84520; 99212

== ENCOUNTER 2018-08-28 09:45 | Outpatient (RCR) | payer MEDICARE, OTHER ==
[2018-06-25 10:46] VITALS: BP 134/77
--- NOTE | 2018-06-26 03:33 | SCHUSTER ONCOLOGY NOTE ---
EVENT DATE: June 25, 2018 CHIEF COMPLAINT/REASON FOR VISIT Mr. Akins is a pleasant 73-year-old gentleman with CLL, Negrete stage 0, here for followup. 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 HISTORY OF PRESENT ILLNESS Bryant returns. He is doing quite well. He had cataract surgery earlier in the year with no complications. He does continue to have hypogammaglobulinemia, but no issues with recurring infections. He has not had any hospitalizations for infection. He is not requiring supportive IVIG, but we did discuss its potential need someday. He lost about 50 pounds with diet and exercise changes over the last year, but has gained back about 10 pounds. No new concerning lumps or bumps. No red-flag symptoms. No infections, fevers, chills, or other concerns today. PAST MEDICAL HISTORY 1. Hyperlipidemia. 2. Hypertension. 3. Type 2 diabetes. 4. CLL. FAMILY HISTORY Remarkable for a seizure disorder, lung cancer in a brother, father with coronary artery disease, a paternal grandmother with stomach cancer, and a paternal grandmother with a brain tumor. 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 He has presented with his in the past. Never smoker. REVIEW OF SYSTEMS: CONSTITUTIONAL: No fevers, chills. HEENT: No headache or vision changes. CARDIOVASCULAR: No chest pain or dyspnea on exertion or edema. RESPIRATORY: No shortness of breath, wheeze, or cough. GASTROINTESTINAL: No nausea or vomiting. GENITOURINARY: No dysuria or hematuria. MUSCULOSKELETAL: No aches or joint pain. PSYCHIATRIC: No anxiety or depression. ENDOCRINE: No heat or cold intolerance. LYMPHATIC: No concerning lumps or bumps. SKIN: No concerning bruises or lesions. Remainder of 14-point review of systems otherwise negative. PHYSICAL EXAMINATION VITAL SIGNS: Blood pressure 134/77, pulse 56, respiratory rate 16, temperature 96.5 Fahrenheit, oxygen saturation 97% on room air. Weight 95 kg. Pain 0/10. Fatigue 0/10. He did give his flu shot this year. GENERAL: In stable condition, resting comfortably in the chair. HEENT: Normocephalic, atraumatic. CARDIOVASCULAR: Regular rate and rhythm. LUNGS: Clear to auscultation bilaterally. ABDOMEN: Soft, obese, but less so than in previous years. No organomegaly or masses appreciated. LYMPHATIC: No appreciable cervical, supraclavicular, or axillary adenopathy. EXTREMITIES: No clubbing, cyanosis, or edema. Remainder of the physical exam unremarkable. IMPRESSION/REPORT/PLAN Bryant is a very pleasant 73-year-old gentleman with the followin. Chronic lymphocytic leukemia, Negrete stage 0, with favorable genetics including 13q deletion. No evidence of changes in his symptoms or labs to require treatment. No need for intravenous immunoglobulin, but we did discuss this today. He did get his flu shot, which is excellent. 2. Multiple benign renal lesions that have been stable on multiple images. No other issues today. I answered all of his questions. BILLING Return visit, level 3. Total time 20 minutes, counseling time 15. MTDD
[2018-08-28 10:07] VITALS: BP 148/83
[2018-08-28 10:11] LABS: PLATELET COUNT, AUTOMATED 237 K/uL (150-450)
--- NOTE | 2018-08-29 08:57 | ONCOLOGY FOLLOW UP NOTE ---
EVENT DATE: August 28, 2018 CHIEF COMPLAINT Followup for CLL. HISTORY OF PRESENT ILLNESS Patient is a 73-year-old male who is seen today in followup. He was diagnosed with CLL, Negrete stage 0. He has required no treatment. He presents today with complaints of a three week history of dizziness and nausea. He saw Dr. Ralph, who felt this was a viral illness. He was treated with prednisone for five days, which may have helped somewhat. Dr. Ralph has told him that the dizziness may last for several weeks. He does note some overall improvement. He denies any intercurrent infections and has noted no adenopathy. He is hopeful that his dizziness will resolve. He was also prescribed finasteride by Dr. Ryan and has been on this for three months. He believes this has been helpful for him. HEMATOLOGY HISTORY Patient was diagnosed with chronic lymphocytic leukemia, Negrete stage 0 with favorable genetics including a 13q deletion. He was diagnosed several years ago at [facility]. He has required no treatment since that time. PAST MEDICAL HISTORY 1. CLL. 2. Hyperlipidemia. 3. Hypertension. 4. Type 2 diabetes. FAMILY HISTORY Remarkable for seizure disorder, lung cancer in a brother, father with coronary artery disease, paternal grandmother with stomach cancer and paternal grandmother with a brain tumor. SOCIAL HISTORY Patient is . They have two grown daughters. 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 He is a never smoker. MEDICATIONS 1. Vitamin D3 2. Vitamin C 3. MVI 4. Atorvastatin 80mg 5. Tamulosin 0.4mg 6. Omeprazole 20mg 7. Finasteride ALLERGIES No known drug allergies REVIEW OF SYSTEMS A 12-point review of systems is performed and is negative except as stated above. PHYSICAL EXAMINATION VITAL SIGNS: Weight 98.6 kg, BP 148/83, P 63, R 16, temperature 97.8, O2 sat 94%. GENERAL: Patient is a well-developed, well-nourished male in no acute distress. HEENT: Normocephalic, atraumatic. EYES: Sclerae anicteric. MOUTH: Moist mucous membranes. NECK: Supple. No palpable adenopathy in the neck or supraclavicular area. LUNGS: Clear bilaterally. CARDIOVASCULAR: Heart rate regular, 63 per minute, without murmur, S3 or S4. EXTREMITIES: No edema. NEURO: Nonfocal. LABS CBC today reveals a WBC of 16.5, ANC of 3.9, 70% lymphocytes 14.5, hematocrit 43.6, platelets 237,000. CMP is within normal limits. Immunoglobulins are pending. IMPRESSION AND PLAN The patient is a 73-year-old male with chronic lymphocytic leukemia, Negrete stage 0 with favorable genetics including a 13 q deletion. No treatment received at this point. 1. Chronic lymphocytic leukemia. Lab today is reviewed and compared to previous. CBC remains very stable. He does have 70% lymphocytes and WBCs are elevated at 16.5 but the remainder of his CBC was within normal limits. We spent some time reviewing his labs and discussing the nature of CLL. 2. Viral illness. Three week history of likely viral illness including nausea with remaining dizziness. A short course of steroids was not terribly helpful. Dr. Ralph has told him that the dizziness may last for several weeks and he does believe this is improving. 3. Benign prostatic hypertrophy. Continue finasteride. He believes this has helped him. 4. Hypogammaglobulinemia. Last IgG was slightly low at 446. Another level is pending today. No issues with infections. We will continue to monitor trend. 4. Follow up in October for continued care. CBC, CMP and immunoglobulins will be drawn at that time. [facility]
== END 2018-09-23 ==
LOC: ONC 09:45
PROVIDERS: ATTEND Internal Medicine
DX: C91.00 Acute lymphoblastic leukemia not having achieved remission (principal); N28.89 Other specified disorders of kidney and ureter; E11.9 Type 2 diabetes mellitus without complications; I10 Essential (primary) hypertension; E78.5 Hyperlipidemia, unspecified; N40.0 Benign prostatic hyperplasia without lower urinary tract symptoms; D80.1 Nonfamilial hypogammaglobulinemia; R51 Headache
CPT/HCPCS: 36415; 82784; 85025; G0463; 82040; 82247; 82310; 82374; 82435; 82565; 82947; 84075; 84132; 84155; 84295; 84450; 84460; 84520; 99212

== ENCOUNTER 2018-10-22 09:51 | Outpatient (RCR) | payer MEDICARE, OTHER ==
[2018-10-16 09:02] VITALS: BP 136/78
[2018-10-16 09:17] LABS: PLATELET COUNT, AUTOMATED 229 K/uL (150-450)
[2018-10-22 09:58] VITALS: BP 147/77
[2018-10-22] MEDS ORDERED: FINA5TAB67 PO (10:00)
--- NOTE | 2018-10-22 14:32 | SCHUSTER ONCOLOGY NOTE ---
EVENT DATE: October 22, 2018 CHIEF COMPLAINT/REASON FOR VISIT Mr. Akins is a very pleasant 73-year old gentleman with Negrete stage 0 CLL as well as deletion of chromosome 13q and trisomy 12 that is here for followup. HISTORY OF PRESENT ILLNESS Bryant returns. He is doing quite well. He continues to have mild hypergammaglobulinemia and a slight increase in infections. He has not had any hospitalizations for infection, thought. He is not requiring supportive IgG but we did discuss it again today. He continues to exercise and try to lose weight. He has gained back a little bit of weight this winter though. No concerning lumps or bumps. No major infections, fevers, chills or other concerns today. PAST MEDICAL HISTORY 1. Hyperlipidemia. 2. Hypertension. 3. Type 2 diabetes. 4. CLL. FAMILY HISTORY Remarkable for a seizure disorder, lung cancer in a brother, father with coronary artery disease, a paternal grandmother with stomach cancer, and a paternal grandmother with a brain tumor. 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 He has presented with his in the past. Never smoker. REVIEW OF SYSTEMS: CONSTITUTIONAL: No fevers, chills. HEENT: No headache or vision changes. CARDIOVASCULAR: No chest pain or dyspnea on exertion or edema. RESPIRATORY: No shortness of breath, wheeze, or cough. GASTROINTESTINAL: No nausea or vomiting. GENITOURINARY: No dysuria or hematuria. MUSCULOSKELETAL: No aches or joint pain. PSYCHIATRIC: No anxiety or depression. ENDOCRINE: No heat or cold intolerance. LYMPHATIC: No concerning lumps or bumps. SKIN: No concerning bruises or lesions. Remainder of 14-point review of systems otherwise negative. PHYSICAL EXAMINATION VITAL SIGNS: Blood pressure 147/77, pulse 56, respiratory rate 16, temperature 96.6 Fahrenheit, oxygen saturation 96% on room air. Weight 101.1 kg, which is up about 20 pounds over the winter. Pain 0/10. Fatigue 0/10. GENERAL: Stable condition, resting comfortably in the chair. HEENT: Normocephalic, atraumatic. LYMPHATIC: No appreciable cervical, supraclavicular or axillary adenopathy. CARDIOVASCULAR: Regular rate and rhythm. LUNGS: Clear. ABDOMEN: Soft, nontender, nondistended. EXTREMITIES: No clubbing, cyanosis, or edema. Remainder of the physical exam unremarkable. IMPRESSION/REPORT/PLAN Mr. Akins is a very pleasant 73-year-old gentleman with the followin. Chronic lymphocytic leukemia, Negrete stage 0, with favorable genetics including 13q deletion. No indication for treatment at this time. No indication for IVIG at this time but we did discuss it at this time. He had his flu shot earlier this year. He is having a slight increase in the number of infections but nothing unusual. 2. Multiple benign renal lesions that have been stable on multiple images. 3. Benign prostatic hypertrophy. He is having poor sleep and nocturia ranging anywhere from two to five times a night. He started finasteride late in 2018. After a three month trial, I think it would be appropriate to follow up with Dr. Ryan to consider surgical intervention to help with the prostate perhaps and I defer to Dr. Ryan. I answered all of his questions about the prostate. BILLING Return visit, level 4. Total time 30 minutes, counseling time 15. MTDD
== END 2018-12-12 12:49 | disposition home or self-care (01) ==
LOC: ONC 09:51
PROVIDERS: ATTEND Internal Medicine
DX: C91.00 Acute lymphoblastic leukemia not having achieved remission (principal); N40.0 Benign prostatic hyperplasia without lower urinary tract symptoms; R35.1 Nocturia; N28.89 Other specified disorders of kidney and ureter; E11.9 Type 2 diabetes mellitus without complications; I10 Essential (primary) hypertension; E78.5 Hyperlipidemia, unspecified
CPT/HCPCS: 36415; 82784; 85025; G0463; 82040; 82247; 82310; 82374; 82435; 82565; 82947; 84075; 84132; 84155; 84295; 84450; 84460; 84520; 99212

== ENCOUNTER → 2018-12-04 | Outpatient (CLI) | payer MEDICARE, OTHER ==
[~2018-12-04] MED LIST changes: +FINA5TAB67 PO
--- NOTE | 2018-12-04 15:24 | RADIOLOGY IMAGING REPORT ---
[place] [facility] [place] NAME: Bryant Akins : 1945 MR: [id number] V: [id number] EXAM DATE: [id number] ORDERING PHYSICIAN: UMBERTO COLORADO TECHNOLOGIST: [place] [facility] [place] : 1945 Visit/Account:[id number] Date of Sevice: 12/04/2018 Exam type: KUB SINGLE VIEW ABDOMEN History: History of stones, no abdomen complaints Comparison: December 19, 2017. Findings: There is copious amounts of stool seen throughout the colon consistent with constipation. The underl belinda renal shadows are secured by the bowel contents. There are extensive spondylotic changes of the lumbar spine. Calcifications within the pelvis may represent phleboliths. IMPRESSION: 1. There is copious amounts of stool throughout the colon consistent with constipation. The bowel c ontents or obscuring the underlying renal shadows Report Dictated By: Valerie Parker MD at 12/04/2018 3:17 PM Report E-Signed By: Valerie Parker MD at 12/04/2018 3:19 PM WSN:[id number]
== END ==
LOC: RAD 14:29
PROVIDERS: ATTEND Urology
DX: N40.1 Benign prostatic hyperplasia with lower urinary tract symptoms (principal); N20.0 Calculus of kidney; C91.90 Lymphoid leukemia, unspecified not having achieved remission; N28.1 Cyst of kidney, acquired
CPT/HCPCS: 36415; 74018; 84153

== ENCOUNTER → 2019-02-28 | Outpatient (CLI) | payer MEDICARE, OTHER ==
[~2019-02-28] MED LIST changes: -OMEP-125 PO; +OMEP-126 PO
--- NOTE | 2019-02-28 16:54 | RADIOLOGY IMAGING REPORT ---
FACILITY: [facility] - [place] PATIENT NAME: Bryant Akins : 1945 MR: [id number] V: [id number] EXAM DATE: ORDERING PHYSICIAN: EZEQUIEL QUEZADA TECHNOLOGIST: Location: [facility] Patient: Bryant Akins : 1945 Visit/Account:[id number] Date of Sevice: 02/28/2019 SHOULDER MIN 2 VIEWS RIGHT HISTORY: Pain COMPARISON: None FINDINGS: AP views of the right shoulder in internal and external rotation as well as a Y view were o btained. There is no evidence of acute fracture or dislocation. There is degenerative change at the a cromioclavicular joint. There is no evidence of AC joint separation. IMPRESSION: No acute osseous abnormality Report Dictated By: Adama Cyr at 02/28/2019 4:47 PM Report E-Signed By: Adama Cyr at 02/28/2019 4:48 PM WSN:[id number]
== END ==
LOC: RAD 08:55
PROVIDERS: ATTEND Physician Assistant
DX: M25.511 Pain in right shoulder (principal)